=== PATIENT | male | born 1950 ===

== ENCOUNTER → 2017-10-02 | Day surgery (SDC) | payer OTHER ==
[~2017-10-02] MED LIST: ATIVAN1 M1 PO; GLIPIZIDE ER5 MG PO; JANUMET 50-1,01 EACH PO; MIRALAX17 GM PO; NEURONTIN800 MG PO; NORVASC5 MG PO; ULTRACET PO
== END | disposition home or self-care (01) ==
LOC: ADM 09-25 12:45 → CIR.AMB 06:15
DX: K40.90 Unilateral inguinal hernia, without obstruction or gangrene, not specified as recurrent (principal); D17.6 Benign lipomatous neoplasm of spermatic cord